=== PATIENT | female | born 1990 | race Caucasian/White ===

== ENCOUNTER 2016-05-19 17:48 | Emergency (ER) | payer MEDICAID, SELFPAY ==
[2016-05-19] MEDS ORDERED: HYDROcodone/Acetaminophen 10/325 mg Tablet ONE (20:14)
[2016-05-19] MEDS ORDERED: AMOXicillin 250 MG CAP ONE (20:15)
[2016-05-19] MEDS ORDERED: Naproxen 500 MG TAB ONE (20:15)
--- NOTE | 2016-05-19 20:53 | ERRECORD ---
[facility] EMERGENCY RECORD HPI TOOTHACHE (20:09 LLDO) CHIEF COMPLAINT: Patient presents for evaluation of toothache, Patient presents for evaluation of jaw swelling, Patient presents for evaluation of 4-5 days. worsening. HISTORIAN: History provided by patient. LOCATION: Symptoms are localized. TEETH: upper left 2nd molar (#15), upper left 1st molar (#14), Caries noted in Broken Loose Pain to. QUALITY: Pain is dull in nature, described as aching, described as BECOMES SHARP WITH MOVEMENT OR PALPATION. SEVERITY: Maximum severity of symptoms severe, Currently symptoms are severe. TIME COURSE: Sudden onset of symptoms, Symptoms are worsening, are constant. ASSOCIATED WITH: Associated with facial pain, Associated with facial swelling, No associated fever, No associated recent dental procedure, No associated trauma, No associated vomiting. EXACERBATED BY: Patient's condition exacerbated by chewing, Patient's condition exacerbated by cold fluids, Patient's condition exacerbated by hot fluids, Patient's condition exacerbated by movement. RELIEVED BY: Patient's condition relieved by nothing. ROS CONSTITUTIONAL: Negative constitutional review of systems. (20:11 LLDO) EYES: Negative eye review of systems, Historian denies eye pain, denies eye redness, denies eye discharge. (20:13 LLDO) ENT: SEVERE DENTAL PAIN. (20:11 LLDO) MUSCULOSKELETAL: Negative musculoskeletal review of systems, Historian denies arthralgias, denies back pain, denies injury, denies myalgias, denies neck pain. (20:13 LLDO) SKIN: Negative skin review of systems, Historian denies cellulitis, denies rash, denies skin changes, denies skin lesions. (20:13 LLDO) NEUROLOGIC: Negative neurologic review of systems, Historian denies confusion, denies dizziness, denies focal weakness, denies mental status changes. (20:13 LLDO) HEMO/LYMPHATIC: Normal hematologic/lymphatic system review, Historian denies abnormal blood clotting, denies gum bleeding, denies petechiae. (20:13 LLDO) ALLERGIC/IMMUNOLOGIC: Normal allergy/immunologic system review, Historian denies eczema, denies environmental allergies, denies food allergies. (20:13 LLDO) PSYCHIATRIC: Negative psychiatric review of systems, Historian denies alcohol abuse, denies anxiety, denies depression, denies drug abuse, denies hallucinations. (20:13 LLDO) NOTES: All systems reviewed, negative except as described above. (20:11 LLDO) &a-1R&a+25V*p+0X*h5511X*c202B*c15G*c2P*p-0X&a-25V&a+1R Name: Jeannie Weber : 1990 F25 MedRec: [id number] AcctNum: [id number] Prepared: ThuMay 19, 2016 21:17 by Interface Page 1 of 3 pMD [facility] EMERGENCY RECORD PAST MEDICAL HISTORY MEDICAL HISTORY: No past medical history. (18:20 MDEB) FEMALE SURGICAL HISTORY: Patient has no surgical history. (18:20 MDEB) PSYCHIATRIC HISTORY: Notes: BI POLAR. (18:20 MDEB) SOCIAL HISTORY: Patient denies alcohol use, Patient denies drug use, Patient currently uses tobacco, smokes cigarettes, daily, Patient smokes 1 pack per day. (18:20 MDEB) NOTES: Nursing records reviewed, Agree with nursing records, Medication list reviewed. (20:12 LLDO) KNOWN ALLERGIES No Known Allergies (Unconfirmed) No Known Drug Allergies CURRENT MEDICATIONS No recorded medications VITAL SIGNS (18:18 MDEB) VITAL SIGNS: BP: 109/60, Pulse: 93, Resp: 20, Temp: 98.5 (Oral), Pain: 10, O2 sat: 100, Time: 05/19/2016 18:18. PHYSICAL EXAM CONSTITUTIONAL: Vital signs reviewed, Patient afebrile, Pulse normal, Blood pressure normal, Respiratory rate normal, Patient appears non toxic, Patient appears in pain, in moderate pain distress, INTERMITTENTLY SEVERE, Patient alert and oriented to person, place and time. (20:11 LLDO) HEAD: Head exam normal, Head exam included findings of head atraumatic, normocephalic. (20:13 LLDO) EYES: Eye exam normal, Eye exam included findings of eyelids normal to inspection, Pupils equally round and reactive to light, Extraocular muscles intact. (20:13 LLDO) ENT: Ear exam normal, Nose exam normal, Pharynx exam normal, Uvula exam normal, Tonsil exam normal, Mouth exam normal, Teeth with, dental caries, fractures, abscess, SEE HPI FOR DAMAGES, Sinus exam included findings of frontal sinuses normal, maxillary sinuses normal. (20:11 LLDO) NECK: Neck exam normal, Neck exam included findings of normal range of motion, Trachea midline, no meningeal signs, no tenderness. (20:13 LLDO) BACK: Back exam normal, Back exam included findings of normal inspection, range of motion normal. (20:13 LLDO) UPPER EXTREMITY: Upper extremity exam normal, Upper extremity exam included findings of inspection normal, Range of motion normal. (20:13 LLDO) LOWER EXTREMITY: Lower extremity exam normal, Lower extremity exam included findings of inspection normal, Range of motion normal. (20:13 LLDO) &a-1R&a+25V*p+0X*v7828F*c202B*c15G*c2P*p-0X&a-25V&a+1R Name: Jeannie Weber : 1990 F25 MedRec: [id number] AcctNum: [id number] Prepared: ThuMay 19, 2016 21:17 by Interface Page 2 of 3 pMD [facility] EMERGENCY RECORD NEURO: Neuro exam normal, Neuro exam findings include patient oriented to person, place and time, Speech normal, Fadia coma scale 15. (20:13 LLDO) SKIN: Skin exam normal, Skin exam included findings of skin warm, dry, and normal in color, no rash. (20:13 LLDO) PSYCHIATRIC: Psychiatric exam normal, Psychiatric exam included findings of patient oriented to person place and time, Normal affect. (20:13 LLDO) MEDICATION ADMINISTRATION SUMMARY Drug Name: [place], Dose Ordered: 10-325 mg, Route: Oral, Status: Given, Time: 20:05/19/2016, Drug Name: Naprosyn, Dose Ordered: 500 mg, Route: Oral, Status: Given, Time: 20:05/19/2016, Drug Name: amoxicillin, Dose Ordered: 500 mg, Route: Oral, Status: Given, Time: :05/19/2016, Detailed record available in Medication Service section. PROBLEM LIST No recorded problems DIAGNOSIS (20:08 LLDO) FINAL: PRIMARY: DENTAL CARIES UNSPECIFIED. PRESCRIPTION (20:08 LLDO) amoxicillin: CAPSULE (HARD, SOFT, ETC.) : 500 mg : ORAL : Quantity: 1 Unit: cap(s) Route: ORAL Schedule: 3 times a day Dispense: 30 May substitute. Refills: No Refills . NOTES: No Refills. Tylenol-Codeine #3: TABLET : 300 mg-30 mg : ORAL : Quantity: 1 Unit: tab(s) Route: ORAL Schedule: every 4 hours prn Dispense: 24 Unit: tab(s) May substitute. Refills: No Refills . NOTES: ^s=No Refills No Refills. DISPOSITION PATIENT: Disposition Type: Discharge, Disposition: *Discharge Home. (20:08 NEGRA) Patient left the department. (21:11 ALFRED) Kohli: NEGRA=MD Дмитрий, Chano DUNLAPEB=MAXIMILIANO Izaguirre, Genia &a-1R&a+25V*p+0X*s4575Z*c202B*c15G*c2P*p-0X&a-25V&a+1R Name: Jeannie Weber : 1990 F25 MedRec: [id number] AcctNum: [id number] Prepared: ThuMay 19, 2016 21:17 by Interface Page 3 of 3 pMD MTDD
--- NOTE | 2016-05-19 20:57 | PICIS ---
[facility] EMERGENCY RECORD TRIAGE (18:20 MDEB) PATIENT: NAME: Jeannie Weber, AGE: 25, GENDER: female, : Cap[place] 1990, TIME OF GREET: ThuMay 19, 2016 17:49, PREFERRED LANGUAGE: Chinese, RACE: WHITE, ETHNICITY: Not or , FALL RISK: NO, ECODE BILLING MAP: [facility], SSN: [id number], Zip Code: [address], KG WEIGHT: 45.36, PHONE: , , , PERSON ID: [id number], PCP: NO PCP. (18:20 MDEB) TRIAGE NOTES: DENTAL PAIN L UPPER MOLAR. (18:20 MDEB) COMPLAINT: TOOTH PAIN. (18:20 MDEB) ADMISSION: URGENCY: 4 Non Urgent, ADMISSION SOURCE: Home, TRANSPORT: Walk-in, BED: TRIAGE. (18:20 MDEB) PAIN: Patient complains of pain described as, aching, on a scale 0-10 patient rates pain as 10. (18:20 MDEB) IMMUNIZATIONS: Tetanus immunization up to date. (18:20 MDEB) TRIAGE SCREENING: Patient denies suicidal ideation, Patient denies presence of domestic violence. (18:20 MDEB) PROVIDERS: TRIAGE NURSE: Genia Izaguirre RN. (18:20 MDEB) VITAL SIGNS: BP 109/60, Pulse 93, Resp 20, Temp 98.5, (Oral), Pain 10, O2 Sat 100, Time 05/19/2016 18:18. (18:18 MDEB) PREVIOUS VISIT ALLERGIES: No Known Drug Allergies. (18:20 MDEB) KNOWN ALLERGIES No Known Allergies (Unconfirmed) No Known Drug Allergies CURRENT MEDICATIONS No recorded medications VITAL SIGNS (18:18 MDEB) VITAL SIGNS: BP: 109/60, Pulse: 93, Resp: 20, Temp: 98.5 (Oral), Pain: 10, O2 sat: 100, Time: 05/19/2016 18:18. NURSING ASSESSMENT: DENTAL (18:20 MDEB) CONSTITUTIONAL: Patient arrives ambulatory, Gait steady, History obtained from patient, Patient appears, anxious, in distress due to pain, uncomfortable, Patient cooperative, Patient alert, Oriented to person, place and time, Skin warm, Skin dry, Skin normal in color, Mucous membranes pink, Mucous membranes moist, Patient is well-groomed, Patient complains of DENTAL PAIN TO L UPPER MOLAR. PAIN: aching pain, to left upper back tooth (teeth), on a scale 0-10 patient rates pain as 10, Pain exacerbated by nothing, Nothing has been tried to alleviate the pain. DENTAL: Dental assessment findings include mouth normal, Teeth abnormal:, broken secondary tooth (teeth), signs of infection to secondary tooth (teeth). NOTES: Emotional support needed and given, Patient tolerated &a-1R&a+25V*p+0X*l8998C*c202B*c15G*c2P*p-0X&a-25V&a+1R Name: Jeannie Weber : 1990 F25 MedRec: [id number] AcctNum: [id number] Prepared: ThuMay 19, 2016 21:23 by Interface Page 1 of 6 pMD [facility] EMERGENCY RECORD procedure well. SAFETY: Cart/Stretcher in lowest position, Call light within reach, Hospital ID band on. NURSING PROCEDURE: DISCHARGE NOTE (21:05 MDEB) DISCHARGE: Patient discharged to home, ambulating without assistance, driving self, unaccompanied, Summary of Care printed/ provided, Patient requested and was provided an electronic copy of Discharge Instructions, Transition record given to patient, Discharge instructions given to patient, Prescriptions given and instructions on side effects given, Above person(s) verbalized understanding of discharge instructions and follow-up care, Patient treated and evaluated by physician. BELONGINGS: Belongings remain with patient, Valuables remain with patient. NOTES: Emotional support needed and given, Patient tolerated procedure well. SAFETY: Side rails up, Cart/Stretcher in lowest position, Family at bedside, Call light within reach, Hospital ID band on. MEDICATION ADMINISTRATION SUMMARY Drug Name: [place], Dose Ordered: 10-325 mg, Route: Oral, Status: Given, Time: 20:18 05/19/2016, Drug Name: Naprosyn, Dose Ordered: 500 mg, Route: Oral, Status: Given, Time: 20:17 05/19/2016, Drug Name: amoxicillin, Dose Ordered: 500 mg, Route: Oral, Status: Given, Time: 20:17 05/19/2016, Detailed record available in Medication Service section. MEDICATION SERVICE amoxicillin: Order: amoxicillin (amoxicillin trihydrate) - Dose: 500 mg : Oral Schedule: Now Ordered by: hCano Choe MD Entered by: Chano Choe MD ThuMay 19, 2016 20:07 , Acknowledged by: Tamika Kerns RN ThuMay 19, 2016 20:14 Documented as given by: Tamika Kerns RN ThuMay 19, 2016 20:17 Patient, Medication, Dose, Route and Time verified prior to administration. Amount given: 500 mg, Site: Medication administered P.O., Patient appears Awake and alert- acceptable, Correct patient, time, route, dose and medication confirmed prior to administration, Patient advised of actions and side-effects prior to administration, Allergies confirmed and medications reviewed prior to administration. Naprosyn: Order: Naprosyn (naproxen) - Dose: 500 mg : Oral Schedule: Now Ordered by: Chano Choe MD Entered by: Chano Choe MD ThuMay 19, 2016 20:07 , &a-1R&a+25V*p+0X*f5833L*c202B*c15G*c2P*p-0X&a-25V&a+1R Name: Jeannie Weber : 1990 F25 MedRec: [id number] AcctNum: [id number] Prepared: ThuMay 19, 2016 21:23 by Interface Page 2 of 6 pMD [facility] EMERGENCY RECORD Acknowledged by: Tamika Kerns RN ThuMay 19, 2016 20:14 Documented as given by: Tamika Kerns RN ThuMay 19, 2016 20:17 Patient, Medication, Dose, Route and Time verified prior to administration. Amount given: 500 mg, Site: Medication administered P.O., Patient appears Awake and alert- acceptable, Correct patient, time, route, dose and medication confirmed prior to administration, Patient advised of actions and side-effects prior to administration, Allergies confirmed and medications reviewed prior to administration. [place]: Order: [place] (hydrocodone bitartrate/acetaminophen) - Dose: 10-325 mg : Oral Schedule: Now Ordered by: Chano Choe MD Entered by: Chano Choe MD ThuMay 19, 2016 20:07 , Acknowledged by: Tamika Kerns RN ThuMay 19, 2016 20:14 Documented as given by: Tamika Kerns RN ThuMay 19, 2016 20:18 Patient, Medication, Dose, Route and Time verified prior to administration. Amount given: 1 tab, Site: Medication administered P.O., Patient appears Awake and alert- acceptable, Correct patient, time, route, dose and medication confirmed prior to administration, Patient advised of actions and side-effects prior to administration, Allergies confirmed and medications reviewed prior to administration. HPI TOOTHACHE (20:09 LLDO) CHIEF COMPLAINT: Patient presents for evaluation of toothache, Patient presents for evaluation of jaw swelling, Patient presents for evaluation of 4-5 days. worsening. HISTORIAN: History provided by patient. LOCATION: Symptoms are localized. TEETH: upper left 2nd molar (#15), upper left 1st molar (#14), Caries noted in Broken Loose Pain to. QUALITY: Pain is dull in nature, described as aching, described as BECOMES SHARP WITH MOVEMENT OR PALPATION. SEVERITY: Maximum severity of symptoms severe, Currently symptoms are severe. TIME COURSE: Sudden onset of symptoms, Symptoms are worsening, are constant. ASSOCIATED WITH: Associated with facial pain, Associated with facial swelling, No associated fever, No associated recent dental procedure, No associated trauma, No associated vomiting. EXACERBATED BY: Patient's condition exacerbated by chewing, Patient's condition exacerbated by cold fluids, Patient's condition exacerbated by hot fluids, Patient's condition exacerbated by movement. RELIEVED BY: Patient's condition relieved by nothing. ROS CONSTITUTIONAL: Negative constitutional review of systems. (20:11 LLDO) &a-1R&a+25V*p+0X*q0812H*c202B*c15G*c2P*p-0X&a-25V&a+1R Name: Jeannie Weber : 1990 F25 MedRec: [id number] AcctNum: [id number] Prepared: ThuMay 19, 2016 21:23 by Interface Page 3 of 6 pMD [facility] EMERGENCY RECORD EYES: Negative eye review of systems, Historian denies eye pain, denies eye redness, denies eye discharge. (20:13 LLDO) ENT: SEVERE DENTAL PAIN. (20:11 LLDO) MUSCULOSKELETAL: Negative musculoskeletal review of systems, Historian denies arthralgias, denies back pain, denies injury, denies myalgias, denies neck pain. (20:13 LLDO) SKIN: Negative skin review of systems, Historian denies cellulitis, denies rash, denies skin changes, denies skin lesions. (20:13 LLDO) NEUROLOGIC: Negative neurologic review of systems, Historian denies confusion, denies dizziness, denies focal weakness, denies mental status changes. (20:13 LLDO) HEMO/LYMPHATIC: Normal hematologic/lymphatic system review, Historian denies abnormal blood clotting, denies gum bleeding, denies petechiae. (20:13 LLDO) ALLERGIC/IMMUNOLOGIC: Normal allergy/immunologic system review, Historian denies eczema, denies environmental allergies, denies food allergies. (20:13 LLDO) PSYCHIATRIC: Negative psychiatric review of systems, Historian denies alcohol abuse, denies anxiety, denies depression, denies drug abuse, denies hallucinations. (20:13 LLDO) NOTES: All systems reviewed, negative except as described above. (20:11 LLDO) PAST MEDICAL HISTORY MEDICAL HISTORY: No past medical history. (18:20 MDEB) FEMALE SURGICAL HISTORY: Patient has no surgical history. (18:20 MDEB) PSYCHIATRIC HISTORY: Notes: BI POLAR. (18:20 MDEB) SOCIAL HISTORY: Patient denies alcohol use, Patient denies drug use, Patient currently uses tobacco, smokes cigarettes, daily, Patient smokes 1 pack per day. (18:20 MDEB) NOTES: Nursing records reviewed, Agree with nursing records, Medication list reviewed. (20:12 LLDO) PHYSICAL EXAM CONSTITUTIONAL: Vital signs reviewed, Patient afebrile, Pulse normal, Blood pressure normal, Respiratory rate normal, Patient appears non toxic, Patient appears in pain, in moderate pain distress, INTERMITTENTLY SEVERE, Patient alert and oriented to person, place and time. (20:11 LLDO) HEAD: Head exam normal, Head exam included findings of head atraumatic, normocephalic. (20:13 LLDO) EYES: Eye exam normal, Eye exam included findings of eyelids normal to inspection, Pupils equally round and reactive to light, Extraocular muscles intact. (20:13 LLDO) ENT: Ear exam normal, Nose exam normal, Pharynx exam normal, Uvula exam normal, Tonsil exam normal, Mouth exam normal, Teeth with, dental caries, fractures, abscess, SEE HPI FOR DAMAGES, Sinus exam included &a-1R&a+25V*p+0X*r2304Y*c202B*c15G*c2P*p-0X&a-25V&a+1R Name: Jeannie Weber : 1990 F25 MedRec: [id number] AcctNum: [id number] Prepared: ThuMay 19, 2016 21:23 by Interface Page 4 of 6 pMD [facility] EMERGENCY RECORD findings of frontal sinuses normal, maxillary sinuses normal. (20:11 LLDO) NECK: Neck exam normal, Neck exam included findings of normal range of motion, Trachea midline, no meningeal signs, no tenderness. (20:13 LLDO) BACK: Back exam normal, Back exam included findings of normal inspection, range of motion normal. (20:13 LLDO) UPPER EXTREMITY: Upper extremity exam normal, Upper extremity exam included findings of inspection normal, Range of motion normal. (20:13 LLDO) LOWER EXTREMITY: Lower extremity exam normal, Lower extremity exam included findings of inspection normal, Range of motion normal. (20:13 LLDO) NEURO: Neuro exam normal, Neuro exam findings include patient oriented to person, place and time, Speech normal, Fadia coma scale 15. (20:13 LLDO) SKIN: Skin exam normal, Skin exam included findings of skin warm, dry, and normal in color, no rash. (20:13 LLDO) PSYCHIATRIC: Psychiatric exam normal, Psychiatric exam included findings of patient oriented to person place and time, Normal affect. (20:13 LLDO) EVENTS TRANSFER: Triage to Emergency Triage. (ThuMay 19, 2016 18:20 MDEB) Emergency Triage to Waiting. (18:20 MDEB) Emergency Waiting to Main ED -03. (19:07 LPOL) Removed from Emergency Main ED -03. (21:11 MDEB) PROBLEM LIST No recorded problems DIAGNOSIS (20:08 LLDO) FINAL: PRIMARY: DENTAL CARIES UNSPECIFIED. DISPOSITION PATIENT: Disposition Type: Discharge, Disposition: *Discharge Home. (20:08 LLDO) Patient left the department. (21:11 MDEB) INSTRUCTION (21:03 MDEB) DISCHARGE: DENTAL PAIN. FOLLOWUP: Follow up with Primary Care Physician in 7-10 days. SPECIAL: Follow-up with your dentist. PRESCRIPTION (20:08 LLDO) amoxicillin: CAPSULE (HARD, SOFT, ETC.) : 500 mg : ORAL : Quantity: 1 Unit: cap(s) Route: ORAL Schedule: 3 times a day Dispense: 30 May substitute. Refills: No Refills . &a-1R&a+25V*p+0X*u0132D*c202B*c15G*c2P*p-0X&a-25V&a+1R Name: Jeannie Weber : 1990 F25 MedRec: [id number] AcctNum: [id number] Prepared: ThuMay 19, 2016 21:23 by Interface Page 5 of 6 pMD [facility] EMERGENCY RECORD NOTES: No Refills. Tylenol-Codeine #3: TABLET : 300 mg-30 mg : ORAL : Quantity: 1 Unit: tab(s) Route: ORAL Schedule: every 4 hours prn Dispense: 24 Unit: tab(s) May substitute. Refills: No Refills . NOTES: ^s=No Refills No Refills. ADMIN (20:13 LLDO) DIGITAL SIGNATURE: MD Choe Lloyd. Kohli: LLDO=MD Choe Lloyd LPOL=MAXIMILIANO Kerns Loretta MDEB=MAXIMILIANO Izaguirre, Genia &a-1R&a+25V*p+0X*r0598L*c202B*c15G*c2P*p-0X&a-25V&a+1R Name: Jeannie Weber : 1990 F25 MedRec: [id number] AcctNum: [id number] Prepared: ThuMay 19, 2016 21:23 by Interface Page 6 of 6 pMD [facility] MEDICATION RECONCILIATION You were seen in the Emergency Department on: ThuMay 19, 2016 KNOWN ALLERGIES No Known Allergies (Unconfirmed) No Known Drug Allergies MEDICATIONS GIVEN WHILE IN THE EMERGENCY DEPARTMENT amoxicillin (amoxicillin trihydrate) - Dose: 500 milligram(s) : Oral Naprosyn (naproxen) - Dose: 500 milligram(s) : Oral [place] (hydrocodone bitartrate/acetaminophen) - Dose: 10-325 milligram(s) : Oral Notes from the emergency department Reviewed with patient PRESCRIPTIONS (2) Printed (2) amoxicillin : CAPSULE (HARD, SOFT, ETC.) : 500 mg : ORAL Quantity: 1, Unit: cap(s), Route: ORAL, Schedule: 3 times a day, Dispense: 30 &a-1R&a+25V*p+0X*m8253J*c202B*c15G*c2P*p-0X&a-25V&a+1R Name: Jeannie Weber : 1990 F25 MedRec: [id number] AcctNum: [id number] Prepared: ThuMay 19, 2016 21:23 by Interface pMBeto DE LA CRU[place]
== END 2016-05-19 21:05 | disposition home or self-care (01) ==
LOC: MADERS 17:48
DX: K02.9 Dental caries, unspecified (principal); F31.9 Bipolar disorder, unspecified; F17.210 Nicotine dependence, cigarettes, uncomplicated
CPT/HCPCS: 99282